=== PATIENT | female | born 1960 | race Caucasian/White ===

== ENCOUNTER 2022-12-29 05:24 | Observation (INO) ==
--- NOTE | 2022-11-09 11:14 | PAT Medication Instructions ---
Medication Instructions Date of Service November 09, 2022 Home Medications levothyroxine 88 mcg tablet 88 mcg PO QAM lvnoljp-xbxdpqptdxcwp-bcrtlcut 250 mg-250 mg-65 mg tablet (Excedrin Extra Strength) 2 tab PO Q6H PRN aspirin-caffeine 500 mg-32.5 mg tablet (Elvia Back and Body) 3 tab PO Q8H PRN ASK your surgeon for instructions rojbtiq-ybntkifwnohjz-edjuevls 250 mg-250 mg-65 mg tablet (Excedrin Extra Strength) 2 tab PO Q6H PRN aspirin-caffeine 500 mg-32.5 mg tablet (Elvia Back and Body) 3 tab PO Q8H PRN Take morning of surgery With a small sip of water, OTHERWISE NOTHING TO EAT OR DRINK AFTER MIDNIGHT: levothyroxine 88 mcg tablet 88 mcg PO QAM Other Notes If you have any questions please call us at [phone] or [phone] or [phone] or [phone]
--- NOTE | 2022-11-12 12:51 | Anesthesiology Consultation ---
Date of Service November 12, 2022 Assessment & Plan (1) Encounter for pre-operative examination: - COVID screening: Per assessment on 11/12: No known COVID-19 positive contacts or current COVID-19 related symptoms. Travel screen negative. At surgeon discretion if preop Covid testing being done. - Outpatient joint assessment: Pt currently scheduled for inpatient pathway. If surgeon requests review for outpatient joint pathway, patient is an acceptable candidate for outpatient joint program from anesthesia standpoint pending surgeon's office assessment that patient is motivated, has good support and completes Same Day Joint Program preop requirements. - Hypokalemia: Potassium borderline low on preop labs at 3.2 Will recheck potassium level AM DOS. - Abnormal preop EKG: NSR + TWA, consider inferior ischemia on preop EKG from 11/12/22. Patient scheduled for preop cardiology evaluation 11/25, [facility]- Awaiting visit. Chart Review Chart Review: Patient seen in Pre Admission Testing Teaching & Discussion Pre-Anesthesia Teaching/Discussion Notes: Instructed NPO after midnight before surgery,except medications with 15 cc of water. Medication instructions provided according to the PAT guidelines. History Surgery Operation Date: 11/30/22 10:55 Proposed Procedures p Left Total Hip Arthroplasty - Kirill Deluca MD Height/Weight Height: 5 ft 6 in Weight: 70.4 kg Allergies Allergy/AdvReac Type Severity Reaction Status Date / Time No Known Drug Allergies Allergy Uncoded 11/06/22 13:09 Medications Home Medications Medication Instructions Recorded Confirmed Last Taken levothyroxine 88 mcg tablet 88 mcg PO QAM 06/20/20 11/06/22 Unknown vqxnlcf-loyvaaoxhapto-islpjpqn 250 2 tab PO Q6H PRN Pain 11/06/22 11/06/22 Unknown mg-250 mg-65 mg tablet (Excedrin Extra Strength) aspirin-caffeine 500 mg-32.5 mg 3 tab PO Q8H PRN Pain 11/06/22 11/06/22 Unknown tablet (Elvia Back and Body) Past Medical History Medical History History of COVID-19 03/2022 (home test)- fatigue > resolved Hypothyroidism Exercise / Class Metabolic Activity III < 4 Walking/Shop/Light housework Past Family History Family History Other ALS (amyotrophic lateral sclerosis) Breast cancer Past Surgical History Surgical History History of dilatation and curettage S/P carpal tunnel release + lipoma excision, nerve repair, trigger finger release S/P excision of lipoma S/P nerve repair S/P trigger finger release Past Anesthesia History No Hx of Anesthesia Complications and No Family Hx of Anesthesia Complications History of PONV No Hx of PONV and No Hx of Motion Sickness Social History Smoking Status: Current every day smoker tobacco type: cigarettes Smoking cigarettes per day: 10 cigs/day (hx tobacco use x 50 years, intermittent use) Do You Dip or Chew Tobacco: No Hx Alcohol Use: Yes Alcohol type: wine alcohol intake frequency: holidays/special occasions only Hx Substance Use: No substance use type: does not use Review of Systems Patient denies chest pain, shortness of breath, dyspnea on exertion, fever, chills, cough, wheezing, palpitations. Physical Exam Vital Signs VITALS BP 125/78 P 88 TEMP WNL SP02 99%RA RESP 16 PHYSICAL Full cervical extension range of motion. Full TMJ range of motion. TMD 3 finger breaths Mallampati Score 2 Dentition: upper/lower full dentures Lungs: clear throughout to auscultation Cardiac: regular rate and rhythm, no murmurs noted Spine: normal Carotid arteries: negative bruit Extremities: no edema Lab Results Anesthesia Preop Results Results Anesthesia Widget: WBC 6.82 K/ul (4.8-10.8) 11/12/22 Hgb 11.6 g/dl (12.0-16.0) L 11/12/22 Hct 35.6 % (37.0-47.0) L 11/12/22 Plt 489 K/uL (130-400) H 11/12/22 Na 141 mmol/L (136-145) 11/12/22 K 3.2 mmol/L (3.5-5.1) L 11/12/22 Cl 111 mmol/L (98-107) H 11/12/22 CO2 22 mmol/L (21-32) 11/12/22 BUN 19 mg/dl (6-23) 11/12/22 Creat 0.74 mg/dl (0.6-1.2) 11/12/22 Glucose Level 92 mg/dl (70-99(Fasting)) 11/12/22 PT 11.0 Seconds (9.0-12.0) 11/12/22 PTT 29.6 Seconds (21.0-31.0) 11/12/22 INR 1.0 (0.9-1.1) 11/12/22 Blood Type A Positive 11/12/22 Antibody Screen NEGATIVE 11/12/22 Testing Electrocardiogram Date: 11/12/22 NSR at 72bpm. TWA, consider inferior ischemia. Chest X-Ray Date: 11/12/22 FINDINGS: The lungs are clear. Cardiac silhouette is normal in size. No pleural effusions. No pneumothorax. IMPRESSION: No acute process. COVID-19 Risk Screen Screening Information COVID-19 Screen Date: 11/12/22 Exposure 21 Days Family/Household +COVID Last 21 Days: No Exposure 10 Days Any COVID Exposure Last 10 Days: No Symptoms Last 10 Days Experienced COVID Sx Last 10 Days: No + COVID 0-90 Days COVID + in Last 0-90 Days: No
--- NOTE | 2022-12-24 23:29 | History and Physical Report ---
CHIEF COMPLAINT: Bilateral hip pain or discomfort, left side greater than right. HISTORY OF PRESENT ILLNESS: A 62-year-old female who presents for surgical treatment of her left hip . She has had a 2-year history of gradually progressing increasing left hip pain and discomfort, has gotten markedly worse over the past year. She has been going through a divorce and having trouble g etting through that and was trying to wait until that was all over, but hip pain has become unbearabl e. Her x-rays got markedly worse over the past 2 years. She describes groin pain, thigh pain. She has had to resort to using a cane to get around. She cannot walk more than a couple blocks. She wou ld like to have her hip replaced. She has got some right hip pain as well. PAST MEDICAL HISTORY: Significant for: 1. Anxiety/depression. 2. Hypothyroidism. 3. Hypertension. 4. Half a pack a day history of smoking. PREVIOUS SURGICAL HISTORY: Include: 1. Carpal tunnel release and trigger finger release and ulnar nerve transposition done by myself. 2. Lymphoma removal. 3. Cryosurgery 4. Lipoma excision. 5. D and E. ALLERGIES: POLLEN AND CATS. CURRENT MEDICATIONS: Include levothyroxine. SOCIAL HISTORY: A 62-year-old female. She works as a business analysis professional. Currently going through divorce. A 25-rtrq-vacw history of smoking. FAMILY HISTORY: Significant for heart disease and diabetes. REVIEW OF SYSTEMS: Negative for diabetes. She does smoke about half a pack per day. No chest pain or shortness of breath. No history of DVT or PE. No known bleeding problems. PHYSICAL EXAMINATION: GENERAL: Shows a pleasant, relatively healthy appearing, middle-aged female. HEENT: Benign. NECK: Supple. No lymphadenopathy. LUNGS: Clear to auscultation. HEART: Regular rate and rhythm. ABDOMEN: Soft, nontender, nondistended. EXTREMITIES: Grossly neurovascularly intact except as follows: Examination of the left hip reveals the patient walks with use of a cane. She is about a centimeter short on the left side compared to the right. She has got pain with any type of hip motion. Interna l rotation to neutral at best. Negative straight leg raise. No knee effusion. X-RAYS: X-rays of the left hip were reviewed. It shows advanced left hip DJD. He has got complete loss of superior joint space. He has got cystic changes on both sides of the joint. This has change d markedly over the past 2 years. Diffuse osteopenia. 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 She has progressed markedly over the past year. Pain is debilitating and she would like to have her hip fixed. PLAN: Will be taken to the operating room with left total hip replacement. We will likely use a marcus ented stem due to her osteopenia. The risks and benefits of this procedure were explained including but not limited to DVT, PE, , infection, neurological, vascular injury, bleeding problem, pain, limited range of motion, stiffness, failure to relieve her symptoms, incomplete relief of symptoms, e tc. The patient understands and desires to proceed. Informed consent was obtained. She is planning to be discharged to home. She is going to have a neighbor come and stay with her pos toperatively. She will use [facility]. Job ID: [id number]
[2022-12-29] MEDS ORDERED: FAMOTIDINE 20 MG TAB PO SCH (06:00)
[2022-12-29] MEDS ORDERED: TRANEXAMIC ACID 1,000 MG **IV Pre-op IV SCH (06:00)
[2022-12-29] MEDS ORDERED: LR 60ML/HR IV SCH (06:00)
[2022-12-29] MEDS ORDERED: dexAMETHasone**PF** 10 MG/ML VIAL IV SCH (06:00)
[2022-12-29] MEDS ORDERED: Scopolamine 1 MG TDSY TD SCH (06:00)
[2022-12-29] MEDS ORDERED: ACETAMINOPHEN 500 MG TAB PO SCH (06:00)
[2022-12-29] MEDS ORDERED: METOCLOPRAMIDE HCL 10 MG TABLET PO SCH (06:00)
[2022-12-29] MEDS ORDERED: LR 500ML BOLUS, THEN 15ML/HR IV SCH (06:00)
[2022-12-29] MEDS ORDERED: ceFAZolin 2000MG 2,000 MG/15 ML SYR IV SCH (06:00)
[2022-12-29] MEDS ORDERED: CeleBREX 200 MG CAP PO SCH (06:00)
[2022-12-29] MEDS ORDERED: BUPIVACAINE 0.5 % 5 MG/1 ML PF 10ML VIAL ONE (06:15)
[2022-12-29] MEDS ORDERED: BUPIVACAINE/EPINEPHRINE 0.5% MPF 1:200,000 30 ML VIAL ONE (06:35)
[2022-12-29] MEDS ORDERED: MIDAZOLAM HCL 1 MG/ML 2ML VIAL ONE (06:41)
[2022-12-29] MEDS ORDERED: fentaNYL citrate PF 100 MCG/2 ML VIAL ONE (06:42)
--- NOTE | 2022-12-29 06:48 | History & Physical Bridge Note ---
Date of Service December 29, 2022 History & Physical Bridge Note I have examined the patient, reviewed the History & Physical and in the interval since the performance of the History & Physical I have noted the following changes of clinical significance: no changes noted
[2022-12-29] MEDS ORDERED: ONDANSETRON INJ 2 MG/ML 2 ML VIAL IV PRN ×2 (07:41→09:39)
[2022-12-29] MEDS ORDERED: fentaNYL citrate PF 100 MCG/2 ML VIAL IV PRN (07:41)
[2022-12-29] MEDS ORDERED: ePHEDrine sulfate 50 MG/ML AMP IV PRN (07:41)
[2022-12-29] MEDS ORDERED: ATROPINE SULFATE 0.1 MG/ML 10ML SYR IV PRN (07:41)
[2022-12-29] MEDS ORDERED: LIDOCAINE 2% 2 ML VIAL/AMP(20MG/ML) INFIL ONE (08:20)
[2022-12-29] MEDS ORDERED: PROPOFOL IV EMULSION 10 MG/ML 20 ML VIAL IV ONE (08:20)
[2022-12-29] MEDS ORDERED: ePHEDrine sulfate 50 MG/ML SYR ONE (08:21)
[2022-12-29] MEDS ORDERED: PHENYLEPHRINE 100MCG/ML 5ML SYR ONE (08:21)
--- NOTE | 2022-12-29 08:54 | Operative Report ---
PG Post Operative Report Pre & Post Diagnosis Operation Date: 12/29/22 07:00 Pre-Op Diagnosis: Left Hip Advanced Degenerative Joint Disease Post-Op Diagnosis: Left Hip Advanced Degenerative Joint Disease I identified the patient and participated in the time-out.: Yes Procedure Operation Date: 12/29/22 07:00 Actual Procedures p Left Total Hip Arthroplasty--Cemented(Left) - Kirill Deluca MD Surgeon Kirill Deluca MD [employer] Darrell Paz PA-C Estimated Blood Loss 100 Findings Consistent with Post-Op Diagnosis Operative findings were advanced left hip DJD. She had extensive grade 4 xbhr-gc-hsjl disease of the femoral head and acetabulum. Resolved cartilage and bone erosion. Not much in the way of osteophytes. Moderate-sized joint effusion. Diffuse osteopenia Specimens Left femoral head sent for pathology Anesthesia Type Spinal MAC Complications none Disposition Accompanied Patient To Recovery: No Indications Patient is a 62-year-old female who said about 2-year history of gradual progressive increased left hip pain and discomfort is become more disabling over time. She failed conservative measures. X-rays showed a markedly progressive hip arthritis. She elected proceed with total hip arthroplasty. Description of Procedure Operative implants consist of: 1. Biomet G7 size 52 mm acetabular shell. 2. 6.5 cancellous acetabular screws 1 at 35 mm length 1 to 25 mm length. 3. [place] hole eliminator. 4. Highly cross-linked polyethylene liner with a 52 mm outer diameter and 36 mm inner diameter. 5. DePuy Jay standard offset size 3 femoral stem. 6. +5/36 mm ceramic articular ball. The patient was taken the operating, identified, placed on the operating table supine position protectors were properly padded. IV antibiotics tried by anesthesia team. A spinal anesthetic and been implemented holding area. Modi catheter was placed in sterile fashion. The patient then placed in the right lateral decubitus position. An axillary roll was placed. A Stulberg hip positioner was used for positioning. Left hip and leg were then prepped and draped in usual sterile fashion. A posterolateral approach to the left hip was then performed through a curvilinear incision centered over the greater trochanter. Sharp dissection was carried through subcutaneous tissue down to level the IT band gluteal fascia. The IT band gluteal fascia were incised longitudinally in line with skin incision. The underlying greater bursa was excised. The piriformis and external rotators along with the posterior hip joint capsule were released from the posterior aspect of the hip as a single layer. Great care was taken throughout the procedure protect the sciatic nerve at all times. Hip was internally rotated and dislocated. A femoral neck osteotomy cut was made with a Final Cut about 10 mm above the lesser trochanter. Femoral head was removed and sent for pathology. The femur was retracted anteriorly. Attention drawn the acetabulum. The acetabular labrum was excised. The pulmonary fat was excised. Sequential reaming the acetabular was then performed beginning with size 43 and progressing up to a 51. I reamed a little bit with a 52 reamer and then placed a 52 mm Biomet G7 acetabular shell in about 40 degrees lateral opening and 20 degrees of anteversion. It was fixed with two 6.5 cancellous acetabular screws. A trial liner was placed. Attention was then drawn to the femur. The proximal femur was entered with a [employer] cutter followed by canal finder and lateralizing reamer. Then broached beginning size 1 and progressing up to 3. We got an excellent fit of the 3. The calcar reamer was used to smooth off the calcar. I trialed the hip and the +5 articular ball seem to recreate leg lengths appropriately and was fully stable in full extension and external rotation and flexion at 90 degrees and internal Tatian over 50 degrees. There was a little bit of soft tissue laxity but I felt like her leg lengths are equal and I did not want to lengthen her anymore. Her hip earlier it seemed remarkably stable. We elect to place these implants. Nupathe all trial implants were removed. Wat[place] hole eliminator was placed. Highly cross-linked polyethylene liner was placed. A double batch Palacos G cement was mixed. A distal cement restrictor was placed in the canal was then injected with cement. A size 3 Jay standard offset femoral stem was then placed. Once the cement hardened a +5/36 mm ceramic articular ball was placed. Hip was located and found to be stable. Attention drawn toward closing. Wounds irrigated cosigns normal saline. I injected locally with 60 cc of half percent Marcaine with epinephrine. The posterior capsule and external rotators were repaired through drill holes in the posterior trochanter with #2 Tycron suture. The IT band gluteal fascia then closed in 1 PDS suture running fashion for subcutaneous tissues then closed with 2 layers with a deep layer #1 Vicryl suture and subcutaneous tissues with 2 Dexon suture in buried interrupted fashion. Skin was closed skin yifan. Leg was then cleaned and dried and a sterile dressing was Xeroform, 4 x 4's, sterile ABD pads, foam tape was applied. The patient then transferred to the recovery in stable condition. The patient tolerated the procedure well and there were no complications. Darrell Paz, my physician video library assistant, was present for the entire procedure. His assistance was essential and required for appropriate patient positioning, prepping and draping, surgical exposure, performing the technical details of the operation, placement the implants, closure of the wound, and placement of the sterile bandage. I attest to the content of the Intraoperative Record and any orders documented therein. Any exceptions are noted below.
--- NOTE | 2022-12-29 09:13 | XRay Report ---
AP PELVIS, CROSSTABLE LATERAL LEFT HIP History: Left total hip arthroplasty. Degenerative arthritis. Postop. FINDINGS: The patient is status post a left total hip arthroplasty. The hardware is intact. No fractu re or dislocation. Skin yifan are in place. IMPRESSION: Left total hip arthroplasty. No evidence for hardware complication. ACT 112: Negative or not required by law. Electronically signed by: Genaro Sutherland M.D. 12/29/2022 9:11 AM
[2022-12-29] MEDS ORDERED: traMADol HCL 50 MG TABLET PO PRN (09:39)
[2022-12-29] MEDS ORDERED: NALOXONE HCL 0.4 MG/1 ML VIAL/CARP IV PRN (09:39)
[2022-12-29] MEDS ORDERED: HYDROmorphone INJ 0.5 MG/0.5 ML SYR IV PRN (09:39)
[2022-12-29] MEDS ORDERED: METOCLOPRAMIDE HCL INJ 5 MG/ML 2 ML VIAL IV PRN (09:39)
[2022-12-29] MEDS ORDERED: bisacodyL 10 MG SUPP PR PRN (09:39)
[2022-12-29] MEDS ORDERED: MAGNESIUM HYDROXIDE SUSP 30 ML UDC PO PRN (09:39)
[2022-12-29] MEDS ORDERED: NON-FORMULARY MEDICATION (Aspirin-Caffeine [Bayer Back And Body] 500-32.5 mg Tablet) PO PRN (09:39)
[2022-12-29] MEDS ORDERED: ALUMINUM/MAGNESIUM SUSP 30 ML UDC PO PRN (09:39)
--- NOTE | 2022-12-29 10:33 | Anesthesiology Progress Note ---
Date of Service December 29, 2022 Anesthesia Post Procedure Vital Signs Vital Signs: Temp Pulse Pulse Resp BP Pulse Ox O2 Del Method 12/29/22 10:15 80 16 108/68 99 Room Air 12/29/22 10:00 74 16 113/74 97 Room Air 12/29/22 09:45 81 21 107/64 98 Room Air 12/29/22 09:30 79 17 128/76 98 Room Air 12/29/22 09:15 36.6 C 76 19 109/70 96 Room Air 12/29/22 09:05 80 17 108/73 98 Room Air 12/29/22 08:55 78 19 112/69 95 Room Air 12/29/22 08:45 78 18 104/66 97 Room Air 12/29/22 08:38 36.2 C L 78 18 115/69 99 Oxymask 12/29/22 06:01 36.5 C 81 20 101/68 99 Room Air O2 Flow Rate 12/29/22 10:15 12/29/22 10:00 12/29/22 09:45 12/29/22 09:30 12/29/22 09:15 12/29/22 09:05 12/29/22 08:55 12/29/22 08:45 12/29/22 08:38 6 12/29/22 06:01 Pain Intensity Left Hip: Pain Intensity: 5 Transfer of Care Handoff Completed per policy Notes Mental Status: alert / awake / arousable Patient Amnestic to Procedure: Yes Nausea / Vomiting: adequately controlled Pain: adequately controlled Airway Patency, RR, SpO2: stable & adequate BP & HR: stable & adequate Hydration State: stable & adequate Neuraxial Anesthesia: was administered and sensory block is resolving Anesthetic Complications: no major complications apparent and Pt Satisfied with anesthetic care
[2022-12-29] MEDS: SENNA 8.6 MG TAB PO SCH ×2 (10:56→20:03)
[2022-12-29] MEDS: LEVOTHYROXINE SODIUM 88 MCG TABLET PO SCH (10:57)
[2022-12-29] MEDS: DOCUSATE SODIUM 100 MG CAP PO SCH ×2 (10:57→20:03)
[2022-12-29] MEDS: MULTIVITAMIN TAB PO SCH (10:57)
[2022-12-29] MEDS: KETOROLAC 30 MG/ML VIAL IV SCH ×3 (10:58→22:15)
[2022-12-29] MEDS: SODIUM CHLORIDE 0.9% 1000ML 1,000 ML IV SCH ×2 (10:59→20:07)
[2022-12-29] MEDS: ASPIRIN 81 MG ECTAB PO SCH ×2 (11:06→20:03)
[2022-12-29] MEDS: ACETAMINOPHEN 500 MG TAB PO SCH ×2 (13:32→22:17)
[2022-12-29] MEDS: ceFAZolin 1000MG 1,000 MG/7.5 ML SYR IV SCH ×2 (14:22→22:15)
[2022-12-29] MEDS ORDERED: TRANEXAMIC ACID / 0.7% NACL 1,000 MG/100 ML BAG IV SCH (14:45)
[2022-12-29] MEDS: Scopolamine CHECK PATCH PLACEMENT SCH ×2 (15:14→23:44)
[2022-12-29] MEDS: ASCORBIC ACID 500 MG TAB PO SCH (17:01)
[2022-12-29] MEDS ORDERED: SENNA 8.6 MG TAB PO SCH (21:00)
[2022-12-30] MEDS: ACETAMINOPHEN 500 MG TAB PO SCH (05:53)
[2022-12-30] MEDS: KETOROLAC 30 MG/ML VIAL IV SCH (05:53)
[2022-12-30] MEDS: LEVOTHYROXINE SODIUM 88 MCG TABLET PO SCH (05:54)
[2022-12-30 06:13] LABS: Basophils # (auto) 0.03 K/uL (0-0.2); Basophils % (auto) 0.5 %; Eosinophils # (auto) 0.04 K/uL (0-0.50); Eosinophils % (auto) 0.7 %; Hematocrit (blood only) 28.7 % (37.0-47.0); Hemoglobin 9.3 g/dl (12.0-16.0); Immature Granulocytes # (auto) 0.02 K/uL (0.01-0.20); Immature Granulocytes % (auto) 0.3 %; Lymphocytes # (auto) 1.62 K/uL (1.2-3.4); Mean Corpuscular Hgb Conc 32.4 g/dL (32.0-36.0); Mean Corpuscular Volume 98.6 fL (80.0-100.0); Monocytes # (auto) 0.65 K/uL (0.11-0.59); Monocytes % (auto) 10.8 %; Neutrophils # (auto) 3.65 K/uL (1.40-6.50); Neutrophils % (auto) 60.7 %; Platelet Count 354 K/uL (130-400); RDW Coefficient of Variation 15.9 % (11.5-14.5); RDW Standard Deviation 57.6 fL (36.4-46.3); Red Blood Count 2.91 M/uL (4.20-5.40); White Blood Count 6.01 K/ul (4.8-10.8)
[2022-12-30 06:24] LABS: BUN Creatinine Ratio 27.5 (10-20); Calcium 8.5 mg/dl (8.6-10.3); Creatinine Clr Calc Pharmacy 78.1 ml/min; Est GFR (African American) 107.4 ml/min; Est GFR (Non-African American) 92.6 ml/min; Potassium 4.1 mmol/L (3.5-5.1)
[2022-12-30] MEDS ORDERED: dexAMETHasone 10 MG in SYRINGE 0 ML IV SCH (08:00)
[2022-12-30] MEDS: DOCUSATE SODIUM 100 MG CAP PO SCH (08:50)
[2022-12-30] MEDS: Scopolamine CHECK PATCH PLACEMENT SCH (08:50)
[2022-12-30] MEDS: MULTIVITAMIN TAB PO SCH (08:50)
[2022-12-30] MEDS: ASPIRIN 81 MG ECTAB PO SCH (08:50)
[2022-12-30] MEDS: ASCORBIC ACID 500 MG TAB PO SCH (08:50)
[2022-12-30] MEDS: SENNA 8.6 MG TAB PO SCH (08:52)
--- NOTE | 2022-12-30 13:33 | Progress Notes ---
DATE OF SERVICE: 12/30/2022. SUBJECTIVE: A 62-year-old female, postoperative day 1 from left hip replacement. She is doing well. Anxious to get home. She reports no pain. The therapy went well. Denies any chest pain or shortn ess of breath. OBJECTIVE: VITAL SIGNS: Temperature 36.6. Vital signs are stable. GENERAL: Shows a pleasant middle-aged female. She is walking around her room, quite comfortable thi s afternoon. LUNGS: Clear to auscultation. HEART: Regular rate and rhythm. ABDOMEN: Soft, nontender, nondistended. EXTREMITIES: Grossly neurovascularly intact except as follows. Examination of the left hip reveals the dressing to be clean, dry and intact. Leg lengths were equal . She can dorsiflex and plantarflex her foot appropriately. She is neurologically intact. LABORATORY DATA: Hemoglobin 9.3. Hematocrit 28.7. Electrolytes are stable. ASSESSMENT: A 62-year-old female, postoperative day 1 from a left total hip replacement, doing quite well. Pain is controlled. Hip is located. She is neurologically intact. She did well in therapy. She is hoping to go home. PLAN: 1. DVT prophylaxis includes thigh-high TEDs, SCDs, and aspirin twice a day. 2. PT/OT, weightbear as tolerated. Left total hip protocol. 3. Pain control, doing well with current pain regimen. 4. Disposition: Plan to discharge to home with some home health today. Job ID: [id number]
== END 2022-12-30 12:01 | disposition home health service (06) ==
LOC: ASU 05:24 → PACUINP 05:24 → 3N 11:27

== ENCOUNTER 2023-07-05 07:13 | Observation (INO) ==
--- NOTE | 2023-06-23 13:45 | Anesthesiology Consultation ---
Date of Service June 23, 2023 Assessment & Plan (1) Encounter for pre-operative examination: - Infectious disease screening: Per assessment on 06/23/23: No known infectious disease contacts or current infectious disease symptoms. No noted Covid positive test result in past 90 days. - Cardiology visit (11/24/22): "62-year-old female with a history of tobacco abuse who presents to the clinic for preoperative cardiovascular evaluation prior to left hip replacement with Dr. Deluca. She currently has a limited functional status secondary to bilateral hip pain. She admits to increased shortness of breath and fatigue with exertion over the last 8 months or so. Recent ECG showed nonspecific T wave abnormality. Given this, recommend stress testing to further evaluate for myocardial ischemia prior to surgery. Will arrange a dobutamine stress echo as patient will not be able to walk on a treadmill. Pending the results of the DSE, patient is at an acceptable risk to proceed with surgery from a cardiovascular standpoint. Follow-up as needed, pending the results of the DSE. Call with any problems, questions, or change in clinical status. Patient understood and agrees with the plan." - Cardiology addendum (12/15/22): "Dobutamine stress echo was negative for ischemia at 86% MPHR. Resting echo with normal LV systolic function and no significant valvular abnormality. Patient is therefore at an acceptable risk to proceed with upcoming surgery from a cardiac standpoint." - S/P Left EAKTERINA (01/02/23): SAB at L3/4 at [facility]. No issues noted per post-op anesthesia progress note. - Outpatient joint assessment: Pt currently scheduled for inpatient pathway. If surgeon requests review for outpatient joint pathway, patient is an acceptable candidate for outpatient joint program from anesthesia standpoint pending surgeon's office assessment that patient is motivated, has good support and completes Same Day Joint Program preop requirements. Chart Review Chart Review: Acceptable Risk for Surgery and Patient NOT seen in Pre Admission Testing History Surgery Operation Date: 07/05/23 07:00 Proposed Procedures p Right Total Hip Arthroplasty - Kirill Deluca MD Height/Weight Height: 5 ft 6 in Weight: 68.039 kg Allergies Allergy/AdvReac Type Severity Reaction Status Date / Time oxycodone AdvReac Unknown Nausea Verified 06/23/23 13:06 Medications Home Medications Medication Instructions Recorded Confirmed Last Taken zczgjpd-bxohqvihmmrrq-iejlroiw 250 1 tab PO Q6H PRN Pain 06/23/23 06/23/23 Unknown mg-250 mg-65 mg tablet (Excedrin Extra Strength) ibuprofen 200 mg tablet 200 mg PO Q6H PRN Pain 06/23/23 06/23/23 Unknown levothyroxine 100 mcg tablet 100 mcg PO QAM 06/23/23 06/23/23 Unknown Past Medical History Medical History Arthritis of right hip Hypothyroidism History of COVID-19 03/2022 (home test)- fatigue > resolved Past Family History Family History Other ALS (amyotrophic lateral sclerosis) Breast cancer Past Surgical History Surgical History S/P total left hip arthroplasty History of dilatation and curettage S/P trigger finger release S/P carpal tunnel release + lipoma excision, nerve repair, trigger finger release S/P nerve repair S/P excision of lipoma Social History Smoking Status: Current every day smoker tobacco type: cigarettes Smoking cigarettes per day: 10 cigs/day- advised (hx tobacco use x 50 years, intermittent use) Do You Dip or Chew Tobacco: No Hx Alcohol Use: Yes (1-2 per month) Alcohol type: wine alcohol intake frequency: other Hx Substance Use: No substance use type: does not use Lab Results Anesthesia Preop Results Results Anesthesia Widget: WBC 5.68 K/ul (4.8-10.8) 06/14/23 Hgb 12.6 g/dl (12.0-16.0) 06/14/23 Hct 38.6 % (37.0-47.0) 06/14/23 Plt 380 K/uL (130-400) 06/14/23 Na 138 mmol/L (136-145) 06/14/23 K 4.1 mmol/L (3.5-5.1) 06/14/23 Cl 106 mmol/L (98-107) 06/14/23 CO2 25 mmol/L (21-32) 06/14/23 BUN 24 mg/dl (6-23) H 06/14/23 Creat 0.72 mg/dl (0.6-1.2) 06/14/23 Glucose Level 101 mg/dl (70-99(Fasting)) H 06/14/23 PT 10.3 Seconds (9.0-12.0) 06/14/23 PTT 27.2 Seconds (21.0-31.0) 06/14/23 INR 0.9 (0.9-1.1) 06/14/23 Blood Type A Positive 06/14/23 Antibody Screen NEGATIVE 06/14/23 Testing Electrocardiogram Date: 11/12/22 NSR at 72bpm. TWA, consider inferior ischemia. Chest X-Ray Date: 11/12/22 FINDINGS: The lungs are clear. Cardiac silhouette is normal in size. No pleural effusions. No pneumothorax. IMPRESSION: No acute process. Stress Test Date: 12/11/22 Type: DSE Normal dobutamine echo without evidence of inducible ischemia. 86% MPHR. Rest echo- LVEF 60%, no RWMA, mild TR, AV sclerosis.
--- NOTE | 2023-07-02 07:43 | History & Physical Report ---
Date of Service July 02, 2023 Assessment & Plan (1) S/P total left hip arthroplasty: (2) Arthritis of right hip: 62-year-old female now 6 months out from a hybrid left hip replacement with advanced right hip arthritis. She is failed conservative measures would like to proceed with surgical treatment. Bharathi taken to the operating do a right total hip replacement. The risks Mente this procedure explained the patient and include but not limited to DVT PE infection neurological and vascular bleeding palm pain limb range of motion sepsis fairly with symptoms incomplete relief of symptoms etc. The patient understands and desires to proceed. Informed consent is obtained. History of Present Illness Chief Complaint: . Persistent progressive right hip pain and discomfort. Primary Care Provider: Hoang Mejia DO . Patient is a 62-year-old female now 6 months out from a left knee replacement. This is done great. She is back to most activities. She developed increasing pain discomfort in her right hip that is gotten worse since her surgery up. Describes groin pain thigh pain. Is limiting her activities and ability to mobilize. She would like and I will proceed with a right hip replacement. Allergies Allergy/AdvReac Type Severity Reaction Status Date / Time oxycodone AdvReac Unknown Nausea Verified 06/23/23 13:06 Home Medications Medication Instructions Recorded Confirmed Type [id number] 250 1 tab PO Q6H PRN Pain 06/23/23 06/23/23 History mg-250 mg-65 mg tablet (Excedrin Extra Strength) ibuprofen 200 mg tablet 200 mg PO Q6H PRN Pain 06/23/23 06/23/23 History levothyroxine 100 mcg tablet 100 mcg PO QAM 06/23/23 06/23/23 History Past Med/Surg History Medical History Arthritis of right hip Hypothyroidism History of COVID-19 03/2022 (home test)- fatigue > resolved Surgical History S/P total left hip arthroplasty History of dilatation and curettage S/P trigger finger release S/P carpal tunnel release + lipoma excision, nerve repair, trigger finger release S/P nerve repair S/P excision of lipoma Family History Other ALS (amyotrophic lateral sclerosis) Breast cancer Social History Smoking Status: Current every day smoker Cigarettes Per Day: 10 cigs/day- advised (hx tobacco use x 50 years, intermittent use); Second Hand Exposure: Yes (HX-GROWING UP); Do You Dip or Chew Tobacco: No; Tobacco Cessation Education Requested by Patient: No Hx Alcohol Use: Yes (1-2 per month) Alcohol type: wine Hx Substance Use: No Preferred Language: Italian Communication Ability: Effective Immigration Paralegal Required: No Beliefs That Will Affect Care: None marital status: Legally Current Living Situation: Alone Other Information That Helps Us Care for You: No Feels Safe at Home: Yes Safety Concerns: Feels Safe At This Time Assistive Devices: Denture - Upper, Denture - Lower and Glasses Review of Systems All systems reviewed & are unremarkable except as noted in HPI & below. Physical Exam . Physical examination reveals a pleasant middle-age female. As she looks in pretty good health. She ambulates with an antalgic gait. Examination of the right hip reveals her skin to be intact. No rashes. She is got limited hip motion. She can internally rotate to neutral which creates her pain. Negative straight leg raise. No knee effusion. She is neurologically intact. Examination left hip reveals a well-healed incision. Leg lengths appear pretty equal. No swelling. No pain with hip motion. Constitutional WD/WN, vitals as above Neck trachea midline, no thyromegaly Respiratory normal respiratory effort, lungs clear to auscultation Cardiovascular RRR, no murmur, no edema Gastrointestinal (Abdomen) normal bowel sounds, soft, nontender, no hepatosplenomegaly Results & Data Results & Data Laboratory Results . Diagnostic Findings . X-rays of the right hip were reviewed. Shows advanced right hip arthritis Feese complete loss of superior joint space.. Not a lot osteophyte formation. Bone looks osteopenic. The left hip replaced looks to be good position without problems. PG Care Time/CCT Total # of Minutes Spent Total Time Spent with Patient: Total time spent is greater than 50% in coordination of care (as documented) at patient's floor/unit and/or counseling patient: Coding Level of Care Code None Diagnoses S/P total left hip arthroplasty Z96.642 Arthritis of right hip M16.11
[~2023-07-05 07:13] MED LIST: ACETAMINOPHEN 500 MG TAB PO SCH; BUPIVACAINE 0.5 % 5 MG/1 ML PF 10ML VIAL ONE; CeleBREX 200 MG CAP PO SCH; FAMOTIDINE 20 MG TAB PO SCH; LR 500ML BOLUS, THEN 15ML/HR IV SCH; LR 60ML/HR IV SCH; METOCLOPRAMIDE HCL 10 MG TABLET PO SCH; Scopolamine 1 MG TDSY TD SCH; TRANEXAMIC ACID 1,000 MG **IV Pre-op IV SCH; ceFAZolin 2000MG 2,000 MG/15 ML SYR IV SCH; dexAMETHasone**PF** 10 MG/ML VIAL IV SCH
[2023-07-05] MEDS ORDERED: MIDAZOLAM HCL 1 MG/ML 2ML VIAL ONE (07:41)
[2023-07-05] MEDS ORDERED: fentaNYL citrate PF 100 MCG/2 ML VIAL ONE (07:41)
[2023-07-05] MEDS ORDERED: PROPOFOL IV EMULSION 10 MG/ML 20 ML VIAL IV ONE ×3 (07:42)
--- NOTE | 2023-07-05 08:31 | History & Physical Bridge Note ---
Date of Service July 05, 2023 History & Physical Bridge Note I have examined the patient, reviewed the History & Physical and in the interval since the performance of the History & Physical I have noted the following changes of clinical significance: no changes noted
[2023-07-05] MEDS ORDERED: BUPIVACAINE/EPINEPHRINE 0.5% MPF 1:200,000 30 ML VIAL ONE (08:33)
[2023-07-05] MEDS ORDERED: ATROPINE SULFATE 0.1 MG/ML 10ML SYR IV PRN (08:40)
[2023-07-05] MEDS ORDERED: ePHEDrine sulfate 50 MG/ML AMP IV PRN (08:40)
[2023-07-05] MEDS ORDERED: ONDANSETRON INJ 2 MG/ML 2 ML VIAL ONE (09:18)
[2023-07-05] MEDS ORDERED: DEXAMETHASONE SOD INJ 4 MG/ML VIAL ONE (09:18)
--- NOTE | 2023-07-05 11:02 | Operative Report ---
PG Post Operative Report Pre & Post Diagnosis Operation Date: 07/05/23 08:40 Pre-Op Diagnosis: Arthritis of right hip Post-Op Diagnosis: Arthritis of right hip I identified the patient and participated in the time-out.: Yes Procedure Operation Date: 07/05/23 08:40 Actual Procedures p Right hybrid total Hip Arthroplasty(Right) - Kirill Deluca MD Surgeon Kirill Deluca MD Conference Coordinator Darrell Paz PA-C Estimated Blood Loss 200 Findings Consistent with Post-Op Diagnosis Operative findings reveal advanced right hip arthritis. As she had pretty extensive grade 4 [id number] disease of the femoral head and acetabulum. Not much in the way of the osteophyte formation. Fairly significant joint effusion. Specimens Right femoral head sent for pathology Anesthesia Type Spinal MAC Complications none Disposition Accompanied Patient To Recovery: No Indications Patient is 62-year-old female whose had a several day history of right increasing hip pain and discomfort. She failed conservative measures. She had her left hip replaced about 6 months ago and is done remarkably well from this. She continues to be limited by right hip pain and discomfort. X-rays show progressive hip arthritis. She elected proceed with surgical treatment. Description of Procedure Operative implants consist of: 1. Biomet G7 size 50 mm acetabular shell. 2. Dover eliminator. 3. 6.5 cancellous acetabular screws 1 at 35 mm in length by 30 mm length. 4. Highly cross-linked polyethylene liner with a 50 mm outer diameter 36 mm inner diameter. 5. Gypsum size 3 standard offset cemented femoral stem. 6. +5/36 mm ceramic articular ball. 7. 11 mm centralizer. 8. Small cement restrictor. The patient was taken the operating, identified, and placed on the operating tab le in the supine position. All contact areas were appropriately padded. IV antibiotics tried by anesthesia team. A spinal anesthetic had been implemented in the holding area. Modi catheter was placed in sterile fashion. The patient then placed in the left lateral decubitus position. An axillary roll was placed. A Stulberg hip positioner was used for positioning. The right hip and leg were then prepped and draped in usual sterile fashion. A posterolateral approach to the right hip was then performed to a curvilinear incision centered over the greater trochanter. Sharp dissection was carried through subcutaneous tissue down to level the IT band gluteal fascia. The IT band gluteal fascia were incised longitudinally in line with skin incision. The underlying greater bursa was excised. The piriformis and external rotators and the posterior hip capsule were then released from the posterior aspect of the hip as a single layer. Great care was taken throughout the procedure protect the sciatic nerve at all times. Hip was internally rotated and dislocated. A femoral neck osteotomy cut was made with Final Cut about 10 mm above the lesser trochanter. Femoral head was removed and sent for pathology. The femur was retracted anteriorly. Attention drawn the acetabulum. The acetabular labrum was excised. The pulmonary fat was excised. Sequential reaming the acetabular was then performed again with size 43 and progressing up to 49. I reamed a little bit with a 50 reamer and then placed a 50 mm Biomet G7 acetabular shell in about 40 degrees lateral opening and 20 degrees of anteversion. It was fixed with two 6.5 cancellous acetabular screws. A trial liner was placed. Attention drawn the femur. The proximal femur was then with a [employer] F[employer]'s cutter followed by canal finder and lateralizing reamer. I then broached beginning with size 1 and progressing up to a 2. I just could barely get the 2 down to the proximal field. We trialed the hip and the +5 articular ball provided appropriate soft tissue tension, equal leg lengths and full stability. Judging from his previous x-ray on the other side I did felt comfortable placing a slightly larger stem. I did broach with a 3 broach. I could not get it all the way down due to the proximal fit and metaphysis but the distal portion was fairly wide open. We elect to place a size 3 implant. All trial implants were removed. A cement restrictor was placed distally. The permanent polyethylene liner was placed after placing the apex hole eliminator. Double batch Palacos G cement was then mixed. I then injected the canal with the cement. A size 3 Gypsum standard offset cemented stem was then placed. All extraneous cement was removed. The implant was held in place until cement hardened. Final cement check was then performed. I then irrigated the wound. A +5/36 mm ceramic articular ball was placed. Hip was located once again found to be stable. Attention drawn toward closing. The wound was irrigated coconuts pulsatile lavage solution. I did inject locally with 60 cc of half percent Marcaine with epinephrine. The posterior capsule and external rotators were then repaired through drill holes in the posterior trochanter with #2 Tycron suture. The IT band gluteal fascia then closed in 1 PDS suture running fashion for subcutaneous tissues then closed with 2 Dexon suture in a buried interrupted fashion the skin was closed with skin yifan. The leg was then cleaned and dried and sterile dressing was Xeroform, 4 fours, ABD pad, foam tape was applied. Patient then transferred to the [facility] room in stable condition. Patient tolerated procedure well and there were no complications. Darrell Paz, my physician assistant professor of history, was present for the entire procedure. His assistance was essential and required for appropriate patient positioning, prepping and draping, surgical exposure, performing the technical details of the operation, placement the implants, closure of the wound, and placement of the sterile bandage. I attest to the content of the Intraoperative Record and any orders documented therein. Any exceptions are noted below.
--- NOTE | 2023-07-05 12:11 | Anesthesiology Progress Note ---
Date of Service July 05, 2023 Anesthesia Post Procedure Vital Signs Vital Signs: Temp Pulse Pulse Resp BP Pulse Ox O2 Del Method 07/05/23 11:55 74 17 127/82 99 Nasal Cannula 07/05/23 11:40 72 17 130/83 99 Nasal Cannula 07/05/23 11:25 36.4 C L 72 15 132/81 97 Nasal Cannula 07/05/23 11:15 77 16 128/76 98 Nasal Cannula 07/05/23 11:05 73 14 122/75 98 Nasal Cannula 07/05/23 10:55 71 16 136/80 98 Nasal Cannula 07/05/23 10:45 36.1 C L 75 16 142/88 H 98 Nasal Cannula 07/05/23 07:39 36.7 C 84 18 139/84 97 Room Air O2 Flow Rate 07/05/23 11:55 2 07/05/23 11:40 2 07/05/23 11:25 2 07/05/23 11:15 2 07/05/23 11:05 2 07/05/23 10:55 2 07/05/23 10:45 2 07/05/23 07:39 Pain Intensity Right Hip: Pain Intensity: 5 Notes Mental Status: alert / awake / arousable Patient Amnestic to Procedure: Yes Nausea / Vomiting: adequately controlled Pain: adequately controlled Airway Patency, RR, SpO2: stable & adequate BP & HR: stable & adequate Hydration State: stable & adequate Neuraxial Anesthesia: was administered and sensory block is resolving Anesthetic Complications: no major complications apparent
[2023-07-05] MEDS ORDERED: NALOXONE HCL 0.4 MG/1 ML VIAL/CARP IV PRN (13:14)
[2023-07-05] MEDS ORDERED: traMADol HCL 50 MG TABLET PO PRN (13:14)
[2023-07-05] MEDS ORDERED: MAGNESIUM HYDROXIDE SUSP 30 ML UDC PO PRN (13:14)
[2023-07-05] MEDS ORDERED: NON-FORMULARY MEDICATION (Aspirin-Acetaminophen-Caffeine [Excedrin Extra Strength] 250-250 PO PRN (13:14)
[2023-07-05] MEDS ORDERED: ALUMINUM/MAGNESIUM SUSP 30 ML UDC PO PRN (13:14)
[2023-07-05] MEDS ORDERED: METOCLOPRAMIDE HCL INJ 5 MG/ML 2 ML VIAL IV PRN (13:14)
[2023-07-05] MEDS ORDERED: HYDROmorphone INJ 0.5 MG/0.5 ML SYR IV PRN (13:14)
[2023-07-05] MEDS ORDERED: ONDANSETRON INJ 2 MG/ML 2 ML VIAL IV PRN (13:14)
[2023-07-05] MEDS ORDERED: bisacodyL 10 MG SUPP PR PRN (13:14)
--- NOTE | 2023-07-05 15:49 | XRay Report ---
XR hip 1V RT w pelvis HISTORY: 62 years-old Female IN PACU - Post Surgical right hip arthroplasty COMPARISON: 05/20/2023 TECHNIQUE: AP view of the pelvis with cross table lateral view of the right hip FINDINGS: Unchanged appearance of the left hip arthroplasty. Right hip arthroplasty demonstrates satisfactory a lignment. Lateral skin yifan are present along with expected postoperative soft tissue swelling wit h deep tissue air. IMPRESSION: Right hip arthroplasty with expected postoperative changes. ACT 112: Negative or not required by law. The above report was generated using voice recognition software. It may contain grammatical, syntax o r spelling errors. Electronically signed by: Asael Mccauley M.D. 07/05/2023 3:47 PM
[2023-07-05] MEDS: SODIUM CHLORIDE 0.9% 1,000 ML IV SCH (16:40)
[2023-07-05] MEDS: Scopolamine CHECK PATCH PLACEMENT SCH (16:41)
[2023-07-05] MEDS: ACETAMINOPHEN 500 MG TAB PO SCH ×2 (16:45→21:31)
[2023-07-05] MEDS: KETOROLAC 30 MG/ML VIAL IV SCH ×2 (16:46→21:30)
[2023-07-05] MEDS ORDERED: TRANEXAMIC ACID / 0.7% NACL 1,000 MG/100 ML BAG IV SCH (17:00)
[2023-07-05] MEDS: ceFAZolin 1000MG 1,000 MG/7.5 ML SYR IV SCH (17:05)
[2023-07-05] MEDS: ASCORBIC ACID 500 MG TAB PO SCH (17:05)
[2023-07-05] MEDS ORDERED: NON-FORMULARY MEDICATION (Amino Acids [Amino Acid] Capsule) PO SCH (21:00)
[2023-07-05] MEDS ORDERED: SENNA 8.6 MG TAB PO SCH ×2 (21:00)
[2023-07-05] MEDS: DOCUSATE SODIUM 100 MG CAP PO SCH (21:31)
[2023-07-05] MEDS: ASPIRIN 81 MG ECTAB PO SCH (21:32)
[2023-07-06] MEDS: ceFAZolin 1000MG 1,000 MG/7.5 ML SYR IV SCH (00:37)
[2023-07-06] MEDS: Scopolamine CHECK PATCH PLACEMENT SCH ×2 (00:39→07:53)
[2023-07-06] MEDS: SODIUM CHLORIDE 0.9% 1,000 ML IV SCH (02:29)
[2023-07-06] MEDS: KETOROLAC 30 MG/ML VIAL IV SCH ×2 (02:30→07:53)
[2023-07-06] MEDS: ACETAMINOPHEN 500 MG TAB PO SCH (05:36)
[2023-07-06 06:28] LABS: Basophils # (auto) 0.02 K/uL (0.00-0.20); Basophils % (auto) 0.2 %; Eosinophils # (auto) 0.01 K/uL (0.00-0.50); Eosinophils % (auto) 0.1 %; Hematocrit (blood only) 32.2 % (37.0-47.0); Hemoglobin 10.6 g/dl (12.0-16.0); Immature Granulocytes # (auto) 0.03 K/uL (0.01-0.20); Immature Granulocytes % (auto) 0.3 %; Lymphocytes # (auto) 1.59 K/uL (1.20-3.40); Lymphocytes % (auto) 18.2 %; Mean Corpuscular Hgb Conc 32.9 g/dL (32.0-36.0); Mean Corpuscular Volume 91.2 fL (80.0-100.0); Mean Platelet Volume 9.7 fL (9.4-12.4); Monocytes # (auto) 0.86 K/uL (0.11-0.59); Monocytes % (auto) 9.9 %; Neutrophils # (auto) 6.22 K/uL (1.40-6.50); Neutrophils % (auto) 71.3 %; Platelet Count 297 K/uL (130-400); RDW Standard Deviation 50.1 fL (36.4-46.3); Red Blood Count 3.53 M/uL (4.20-5.40); White Blood Count 8.73 K/ul (4.8-10.8)
[2023-07-06] MEDS ORDERED: LEVOTHYROXINE SODIUM 100 MCG TABLET PO SCH (06:30)
[2023-07-06 06:51] LABS: Calcium 8.6 mg/dl (8.6-10.3)
[2023-07-06 06:57] LABS: BUN Creatinine Ratio 30.9 (10-20); Creatinine Clr Calc Pharmacy 86.7 ml/min; Est GFR (African American) 107.9 ml/min; Est GFR (Non-African American) 93.1 ml/min
[2023-07-06] MEDS: ASCORBIC ACID 500 MG TAB PO SCH (07:52)
[2023-07-06] MEDS: ASPIRIN 81 MG ECTAB PO SCH (07:52)
[2023-07-06] MEDS: DOCUSATE SODIUM 100 MG CAP PO SCH (07:53)
[2023-07-06] MEDS ORDERED: dexAMETHasone 10 MG in SYRINGE 0 ML IV SCH (08:00)
[2023-07-06] MEDS ORDERED: MULTIVITAMIN TAB PO SCH (09:00)
[2023-07-06] MEDS ORDERED: VITAMIN B COMPLEX TAB PO SCH (09:00)
[2023-07-06] MEDS ORDERED: NON-FORMULARY MEDICATION (Multivitamin Capsule) PO SCH (09:00)
[2023-07-06] MEDS ORDERED: FOLIC ACID 1 MG TAB PO SCH (09:00)
--- NOTE | 2023-07-06 11:40 | Surgery Progress Note ---
Date of Service July 06, 2023 Assessment & Plan (1) History of right hip replacement: Plan: 62-year-old female now with postop day 1 from a right hybrid total hip replacement. She is doing well. Pain is controlled. Hips located. She is neurologically intact. Hoping to go home today. Plan: 1. DVT prophylaxis including thigh-high teds, SCDs, aspirin twice daily. 2. PT/OT. Weight-bear as tolerated right total hip protocol. 3. Pain control doing okay with current pain regimen. 4. Disposition she is planned to be discharged to home. She really did not need much home health last time and feels like she can just do it on her own. Will make sure she is going okay in therapy. Discharge home when she does okay in therapy. Admission and Anticipated Discharge Date Admission Date: July 05, 2023 Subjective 62-year-old female postop day 1 from a right hybrid total hip replacement. She is doing well. Has some mild groin pain. She has been up and ambulating successfully with a walker. No chest pain or shortness of breath. Hoping to go home. Physical Exam Physical Exam: Physical examination was a pleasant middle-age female. Sitting up in bedside chair looks comfortable. Examination of the right hip reveals dressing be clean dry and intact. Leg lengths are equal. Thigh is soft and supple. No drainage. She can dorsiflex and plantarflex her foot appropriately. Respiratory: normal respiratory effort, lungs clear to auscultation Cardiovascular: RRR, no murmur, no edema Gastrointestinal (Abdomen): normal bowel sounds, soft, nontender, no hepatosplenomegaly Results & Data Vital Signs (Past 12 Hours) Vital Signs Temp Pulse Pulse Resp BP BP Pulse Ox 07/06/23 07:17 36.8 C 63 16 116/68 99 07/06/23 03:20 36.8 C 66 16 119/74 96 O2 Del Method 07/06/23 07:17 Room Air 07/06/23 03:20 Room Air Laboratory Results Hemoglobin is at 10.6. Mackert 32.2. Electrolytes are stable. PG Care Time/CCT Total # of Minutes Spent Total Time Spent with Patient: Total time spent is greater than 50% in coordination of care (as documented) at patient's floor/unit and/or counseling patient: Coding Level of Care Code 71850 Post Operative Follow-Up Diagnoses History of right hip replacement Z96.809
--- NOTE | 2023-07-07 12:40 | Discharge Summary ---
Date of Service July 07, 2023 Discharge Data Procedures Performed Operation Date: 07/05/23 08:40 Actual Procedures p Right Total Hip Arthroplasty(Right) - Kirill Deluca MD Hospital Course (1) History of right hip replacement: This is a 62 year old patient admitted on 07/05/23 and underwent total hip arthroplasty. She tolerated the procedure well and there were no complications. Transferred to the PACU post op and later to the orthopedic floor for further care. She was given ancef for antibiotic prophylaxis. She was also given MIRA stockings, SCDs, and aspirin for DVT prophylaxis. Hemoglobin, hematocrit, and vital signs were monitored during her hospital stay and remained stable. Did not require any blood transfusions. There were no complications during her hospital stay. By post op day #1 the patient was tolerating a regular diet, pain was reasonably controlled with oral pain medicine, and she was participating in physical therapy. On post op day #1 the patient was discharged home. She was given printed discharge instructions including prescriptions for extra strength tylenol, aspirin, and tramadol. Continue hip precautions. Continue physical therapy, weight bearing as tolerated. Continue MIRA stockings. Follow up approximately 2 weeks post op or sooner if there are problems or concerns. Coding Level of Care Code None Diagnoses History of right hip replacement Z96.641
== END 2023-07-06 12:09 | disposition home or self-care (01) ==
LOC: PACUINP 07:13 → ASU 07:13 → 3E 16:28